=== PATIENT | female | born 1940 | race Two or more races ===

== ENCOUNTER 2016-09-10 03:00 | Observation (INO) | payer MEDICARE, MEDICAID ==
[~2016-09-10] VITALS: Ht 152.4 cm; Wt 108.9 kg
[2016-09-10] MEDS ORDERED: methylPREDNISolone SOD SUCC 125 MG/2 ML VL IM ONE (04:15)
[2016-09-10] MEDS ORDERED: FAMOTIDINE 20 MG TAB PO ONE (04:15)
[2016-09-10] MEDS ORDERED: diphenhdrAMINE HCL 25 MG CAP PO ONE ×2 (04:15→10:30)
[2016-09-10 04:24] LABS: Basophils # (auto) 0 uL; Basophils % (auto) 0.7 % (0.0-2.0); Eosinophils # (auto) 0.4 uL; Eosinophils % (auto) 5.7 % (0.0-7.0); Hematocrit 40.5 % (36.0-46.0); Hemoglobin 13.5 g/dL (12.2-16.2); Mean Corpuscular Hemoglobin 28.6 pg (28.0-32.0); Mean Corpuscular Hgb Conc. 33.4 g/dL (32.0-36.0); Mean Corpuscular Volume 85.6 fL (80.0-100.0); Mean Platelet Volume 8.1 fL (7.4-10.4); Monocytes # (auto) 0.4 uL; Monocytes % (auto) 5.8 % (0.0-12.0); Neutrophils # (auto) 4.2 uL; Neutrophils % (auto) 59.8 % (37.0-80.0); Platelet Count (auto) 297 10^3/uL (140-450); Red Cell Distribution Width 14.7 % (11.6-16.0); White Blood Cell 7.1 10^3/uL (4.4-10.8)
[2016-09-10 04:42] LABS: Potassium 4.3 mmol/L (3.5-5.1)
[2016-09-10 04:53] LABS: Albumin 3.4 g/dL (3.4-5.0); BUN/Creatinine Ratio 27.1; Bilirubin, Total 0.3 mg/dL (0.2-1.0); Calcium 8.3 mg/dL (8.5-10.1); Total Protein 8.2 g/dL (6.4-8.2)
[2016-09-10] MEDS ORDERED: diphenhdrAMINE HCL 50 MG/1 ML VL IV ONE (09:30)
[2016-09-10 10:14] VITALS: BP 152/70
[2016-09-10 12:30] LABS: Urine Bilirubin Negative (Negative); Urine Blood Negative /uL (Negative); Urine Color Yellow (Yellow); Urine Glucose Normal (Normal); Urine Ketone Negative (Negative); Urine Nitrite Negative (Negative); Urine RBC 1 /hpf (0 - 4); Urine Squamous Epithelial Cell FEW /hpf (<5); Urine Urobilinogen Normal (Negative)
== END 2016-09-10 11:54 | disposition home or self-care (01) | DRG 923 ==
LOC: ER 03:00 → OVERFLOW 09:20 → ER 11:54
PROVIDERS: ADMIT Emergency Medicine; ATTEND Emergency Medicine
DX: T78.1XXA Other adverse food reactions, not elsewhere classified, initial encounter (principal); R21 Rash and other nonspecific skin eruption; I10 Essential (primary) hypertension; K21.9 Gastro-esophageal reflux disease without esophagitis; X58.XXXA Exposure to other specified factors, initial encounter
CPT/HCPCS: 36415; 71020; 80053; 81001; 85025; 93005; 96372; 99285; G0378; J2930